=== PATIENT | male | born 1950 | race Two or more races ===

== ENCOUNTER 2025-05-19 17:28 | Emergency (ER) | payer OTHER ==
[~2025-05-19] VITALS: Ht 170.2 cm; Wt 72.6 kg
[2025-05-19 17:50] VITALS: BP 160/80; O2SAT 100
[2025-05-19] MEDS ORDERED: TOPROL XL25 M1 (17:54)
[2025-05-19] MEDS ORDERED: CRESTOR40 MG (17:55)
[2025-05-19] MEDS ORDERED: ATACAND4 MG (17:55)
[2025-05-19] MEDS ORDERED: AMLODIPINE-OLM1 EAC1 (17:55)
[2025-05-19] MEDS ORDERED: FAMOTIDINE/PF 20 MG/2 ML VIAL ONE (18:15)
[2025-05-19] MEDS ORDERED: DIPHENHYDRAMINE HCL 50 MG/ML VIAL 1ML ONE (18:15)
[2025-05-19] MEDS ORDERED: FAMOTIDINE/PF 20 MG/2 ML VIAL IV ONE (18:15)
[2025-05-19] MEDS ORDERED: DIPHENHYDRAMINE HCL 50 MG/ML VIAL 1ML IV ONE (18:15)
== END 2025-05-19 19:32 ==
LOC: ER 17:28
DX: Z91.030 Bee allergy status (principal); S90.861A Insect bite (nonvenomous), right foot, initial encounter; W57.XXXA Bitten or stung by nonvenomous insect and other nonvenomous arthropods, initial encounter; Y93.89 Activity, other specified; Y92.832 Beach as the place of occurrence of the external cause; Y99.9 Unspecified external cause status; Z88.8 Allergy status to other drugs, medicaments and biological substances
CPT/HCPCS: 96365; 99282; J1200; J3490